=== PATIENT | male | born 2000 | race African-American/Black ===

== ENCOUNTER 2024-06-27 22:25 | Emergency (ER) | payer OTHER ==
[~2024-06-27] VITALS: Ht 188 cm; Wt 75.0 kg
[2024-06-27 23:00] LABS: HEMATOCRIT 43.2 % (42.0-52.0); HEMOGLOBIN 14.1 g/dl (13.5-17.5); MEAN CORPUSCULAR HEMOGLOBIN 27.6 pg (27.0-33.0); MEAN CORPUSCULAR HGB CONC 32.6 g/dl (32.0-36.5); MEAN CORPUSCULAR VOLUME 84.5 fl (80.0-96.0); PLATELET COUNT, AUTOMATED 205 10^3/uL (150-450); RED BLOOD COUNT 5.11 10^6/uL (4.30-6.10); WHITE BLOOD COUNT 5.7 10^3/uL (4.0-10.0)
[2024-06-27 23:30] LABS: AMPHETAMINES LEVEL URINE NEGATIVE (NEGATIVE); BARBITURATES URINE NEGATIVE (NEGATIVE); BENZODIAZEPINES URINE NEGATIVE (NEGATIVE); CANNABINOIDS URINE NEGATIVE (NEGATIVE); COCAINE METABOLITE URINE NEGATIVE (NEGATIVE); METHADONE URINE NEGATIVE (NEGATIVE); OPIATES URINE NEGATIVE (NEGATIVE); PHENCYCLIDINE URINE NEGATIVE (NEGATIVE)
[2024-06-27 23:32] LABS: ETHYL ALCOHOL (ETHANOL) 0.172 % (0.000-0.010)
[2024-06-27 23:34] LABS: ALBUMIN 4.4 G/DL (3.2-5.2); ALKALINE PHOSPHATASE 80 U/L (46-116); ALT/SGPT 24 U/L (7.0-40); AST/SGOT 25 U/L (<34); BILIRUBIN,DIRECT 0.2 MG/DL (<0.4); BILIRUBIN,TOTAL 0.7 MG/DL (0.3-1.2); BLOOD UREA NITROGEN 15 MG/DL (9-23); CALCIUM LEVEL 9.4 MG/DL (8.5-10.1); CARBON DIOXIDE LEVEL 25 MMOL/L (20-31); CHLORIDE LEVEL 103 MMOL/L (98-107); CREATININE FOR GFR 0.95 MG/DL (0.70-1.30); GLOMERULAR FILTRATION RATE > 60.0 (>60); GLUCOSE, FASTING 92 MG/DL (60-100); POTASSIUM SERUM 3.7 MMOL/L (3.5-5.1); SALICYLATE LEVEL < 3.0 MG/DL (<30); SODIUM LEVEL 136 MMOL/L (136-145); TOTAL PROTEIN 7.8 G/DL (5.7-8.2)
[2024-06-27 23:40] LABS: THYROID STIMULATING HORMONE 0.743 uIU/ML (0.55-4.78)
[2024-06-28] MEDS ORDERED: HOME MED LIST COMPLETE! XX SCH (00:15)
[2024-06-28 12:55] VITALS: BP 121/74; TEMP 98.4; O2SAT 100
== END 2024-06-28 13:11 | disposition home or self-care (01) ==
LOC: M ED 22:25
DX: F32.A Depression, unspecified (principal); F10.120 Alcohol abuse with intoxication, uncomplicated

== ENCOUNTER → 2025-07-25 | Outpatient (CLI) | payer OTHER | LOC: M RAD 13:05 | PROVIDERS: ATTEND Physician Assistant Medical | DX: L72.9 Follicular cyst of the skin and subcutaneous tissue, unspecified (principal) ==